=== PATIENT | female | born 1955 | race Caucasian/White ===

== ENCOUNTER 2021-09-28 14:36 | Outpatient (CLI) | payer OTHER | END 2021-09-28 14:37 | disposition home or self-care (01) | LOC: CSHMAMMO 14:36 | PROVIDERS: ATTEND Obstetrics & Gynecology | DX: Z12.31 Encounter for screening mammogram for malignant neoplasm of breast (principal) | CPT/HCPCS: 77063; 77067 ==

== ENCOUNTER 2022-10-26 09:05 | Outpatient (CLI) | payer MEDICARE, BC | END 2022-10-26 09:06 | disposition home or self-care (01) | LOC: CSHMAMMO 09:05 | PROVIDERS: ATTEND Obstetrics & Gynecology | DX: Z12.31 Encounter for screening mammogram for malignant neoplasm of breast (principal) | CPT/HCPCS: 77063; 77067 ==

== ENCOUNTER 2024-11-11 10:13 | Outpatient (CLI) | payer MEDICARE, BC | END 2024-11-11 10:14 | disposition home or self-care (01) | LOC: CSHMAMMO 10:13 | PROVIDERS: ATTEND Obstetrics & Gynecology | DX: Z12.31 Encounter for screening mammogram for malignant neoplasm of breast (principal) | CPT/HCPCS: 77063; 77067 ==